=== PATIENT | female | born 1990 | race Caucasian/White ===

== ENCOUNTER 2021-02-26 05:20 | Inpatient (IN) | payer OTHER ==
[~2021-02-26] VITALS: Ht 165.1 cm; Wt 83.0 kg
[2021-02-26 06:39] LABS: BILIRUBIN NEGATIVE (NEGATIVE); BLOOD NEGATIVE Ery/uL (NEGATIVE); CLARITY CLEAR (CLEAR); COLOR YELLOW (YELLOW); GLUCOSE (U) NORMAL (NORMAL); LEUKOCYTES 1+ Leu/uL (NEGATIVE); NITRITE NEGATIVE (NEGATIVE); PROTEIN NEGATIVE (NEGATIVE); SPECIFIC GRAVITY <=1.005 (1.001-1.030); UROBILINOGEN 0.2 mg/dL (0.2-1.0)
[2021-02-26 06:44] LABS: HCT 38.9 % (37.0-47.0); HGB 13.3 g/dl (12.5-16.0); MCH 30.9 pg (25.0-31.0); MCHC 34.2 g/dL (32.0-36.0); MCV 90.5 fL (78.0-100.0); MPV 10.9 fL (6.0-9.5); RBC 4.3 M/uL (4.20-5.40); RDW 13.3 % (11.5-14.0); WBC 12.1 K/uL (4.0-10.5)
[2021-02-26 06:48] LABS: BACTERIA 1+
[2021-02-27 06:54] LABS: HCT 31.5 % (37.0-47.0); HGB 10.5 g/dl (12.5-16.0); MCH 30.9 pg (25.0-31.0); MCHC 33.3 g/dL (32.0-36.0); MCV 92.6 fL (78.0-100.0); MPV 10.8 fL (6.0-9.5); RBC 3.4 M/uL (4.20-5.40); RDW 13.3 % (11.5-14.0)
[2021-02-28] MEDS ORDERED: PRENATAL FORMU1 EACH PO (13:02)
[2021-02-28] MEDS ORDERED: IBUPROFEN800 M1 PO (13:02)
[2021-02-28] MEDS ORDERED: FEOSOL325 MG PO (13:02)
[2021-02-28] MEDS ORDERED: COLACE100 MG PO (13:02)
== END 2021-02-28 12:52 | disposition home or self-care (01) | DRG 806 ==
LOC: FOB 05:20
PROVIDERS: ADMIT Obstetrics & Gynecology
PROC: 10E0XZZ Delivery of Products of Conception, External Approach (ICD-10-PCS; principal; 2021-02-26)
PROC: 0KQM0ZZ Repair Perineum Muscle, Open Approach (ICD-10-PCS; 2021-02-26)
PROC: 0UQMXZZ Repair Vulva, External Approach (ICD-10-PCS; 2021-02-26)
PROC: 0UQKXZZ Repair Hymen, External Approach (ICD-10-PCS; 2021-02-26)
DX: O24.429 Gestational diabetes mellitus in childbirth, unspecified control (principal); D62 Acute posthemorrhagic anemia; Z37.0 Single live birth; Z3A.39 39 weeks gestation of pregnancy; Z20.822 Contact with and (suspected) exposure to COVID-19; O34.13 Maternal care for benign tumor of corpus uteri, third trimester; D25.9 Leiomyoma of uterus, unspecified; O70.1 Second degree perineal laceration during delivery; O71.82 Other specified trauma to perineum and vulva; O99.03 Anemia complicating the puerperium
CPT/HCPCS: 36415; 81001; 82009; 82947; 82962; 86900; 86901; J7120; J7121; U0002